=== PATIENT | female | born 2005 | race Caucasian/White ===

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

== ENCOUNTER 2024-01-20 01:33 | Emergency (ER) | payer OTHER, SELFPAY ==
[2024-01-20 01:40] VITALS: BP 122/88; PULSE 100; RESP 16; TEMP 37.1; O2SAT 97; BMI 16.6
[2024-01-20 01:51] LABS: Appearance Urine Cloudy (Clear); Bilirubin Urine Negative (Negative); Blood Urine 3+ (Negative); Color Urine Yellow (Yellow); Glucose Urine Negative (Negative); Ketones Urine Negative (Negative); Leukocyte Esterase Urine 3+ (Negative); Nitrite Urine Negative (Negative); Protein Urine 2+ (Negative); Urobilinogen Urine 0.2 (0.2-1.0)
[2024-01-20 01:58] LABS: Amorphous Sediment Urine Few; Bacteria Urine Few; Squamous Epithelial Cell Urine Few (None-Few); WBC Urine 25-50 (0-5)
--- NOTE | 2024-01-20 02:18 | ED.GENADULT ---
HPI - General Adult General Chief complaint: Flank Pain Stated complaint: left side flank pain Time Seen by Provider: 01/20/24 01:54 Source: patient and family Mode of arrival: ambulatory Limitations: no limitations History of Present Illness HPI narrative: 18-year-old female presents the emergency department for evaluation of dysuria worsening over the last 5 days. No fever, no nausea vomiting or weakness. Has a little bit of left lower flank pain, less than 24 hours of this. Does have some urinary urgency and frequency. No hematuria, diarrhea or abdominal pain. Symptoms started originally on January 03 and she was seen at an outside urgent care. I do not have access to those records. She is eventually able to pull up on her phone for me in see the date of the encounter and that she was treated with Macrobid. She reports her symptoms were quite a bit better while she was on the Macrobid but as soon as she stopped the medication, her symptoms returned within a couple of days and are worsening. Denies risk of STD. She is due for her period and wonders if her symptoms could be related to that. She has not tried taking any Tylenol or ibuprofen. There was no other specific reason why she comes to the ED in the middle of the night. There was no signs of sepsis, loss of consciousness, shortness of breath, falls, bleeding or other red flags. She states that her past medical history is benign, no major long-term health problems. No history of urological or gynecological surgeries. Denies any long-term prescription medications. Denies chance of . No allergies. ROS notable for the urinary symptoms as above only, otherwise denies times 12 systems. Related Data Previous Rx's ?Medication ?Instructions ?Recorded azithromycin 250 mg tablet See Rx Instructions PO .COMPLEX #6 04/26/23 (Zithromax Z-Silas) tabs codeine 10 mg-guaifenesin 100 mg/5 10 ml PO Q6H PRN cough #237 mL 04/26/23 mL oral liquid sertraline 50 mg tablet 50 mg PO QDAY #90 tabs 01/11/24 cephalexin 500 mg capsule 500 mg PO TID #20 caps 01/20/24 Allergies Allergy/AdvReac Type Severity Reaction Status Date / Time No Known Drug Allergies Allergy Verified 06/16/23 16:08 [facility] Medical History Menorrhagia ?N92.0 - Excessive and frequent menstruation with regular cycle (ICD-10) Acne ?L70.9 - Acne, unspecified (ICD-10) Anxiety ?F41.9 - Anxiety disorder, unspecified (ICD-10) Surgical History History of inguinal hernia repair ?Z98.890 - Other specified postprocedural states (ICD-10) ?Z87.19 - Personal history of other diseases of the digestive system (ICD-10) Family History Grandmother Breast cancer High blood pressure Mother High blood pressure High cholesterol Grandfather High cholesterol Social History Narrative: Nonsmoker. No E cigarette use. Denies alcohol use. No illicit drug use. Smoking Status: Never smoker Little interest or pleasure in doing things: not at all Feeling down, depressed, or hopeless: not at all Exam Const: Vital Signs, click to edit/add: Vital Signs - 24 hr 01/20/24 01:40 Temperature 98.7 F Pulse Rate [Left P ulse Oximeter] 100 Respiratory Rate 16 Blood Pressure [Ri ght Upper Arm] 122/88 Pulse Oximetry 97 Oxygen Delivery Me thod Room Air Documenting provider has reviewed patient's vital signs: yes Common normals: no apparent distress General appearance: cooperative and well kempt HENMT: Common normals: oropharynx normal Mouth: oral and palatal mucosa normal Eye: Common normals: conjunctivae normal General eye: normal appearance of both eyes Conjunctiva: conjunctiva(e) normal Neck & C-Spine: General: normal visual inspection Resp: Common normals: normal respiratory effort, no use of accessory muscles and clear to auscultation bilaterally Effort & inspection: able to speak in complete sentences Auscultation: clear to auscultation bilaterally Cardio: Common normals: regular rate, regular rhythm, S1 normal heart sound, S2 normal heart sound and no murmurs Rate: regular rate Rhythm: regular rhythm Heart sounds: S1 normal and S2 normal : Common normals: no CVA tenderness Bladder/kidney exam: no CVA tenderness Back & Pelvis: Common normals: no CVA tenderness Extremity: Common normals: normal to inspection and normal capillary refill Psych: Appearance: well kempt Activity/motor behavior: appropriate eye contact Mood and affect: euthymic mood Judgement: judgment good Skin: Common normals: no rashes or lesions noted General skin exam: no rashes or lesions noted Course Course ED Course: Mild flank pain and dysuria most likely consistent with urinary tract infection. Recent treatment with Macrobid. Antibiotic failure with Macrobid is unfortunately not uncommon. There are no red flags such as hypotension, tachycardia or CVA tenderness on exam. Do not recommend blood work. Differential diagnosis also including urinary stone, multiple other etiologies for abdominal pain, musculoskeletal etiology, gynecological, intestinal, amongst others. Urinalysis collected and reviewed. Clearly indicates urinary tract infection. Since she is not exhibiting any signs of sepsis, do not recommend further workup. Will treat with Keflex 1 g p.o. x1 and then continue on 500 t.i.d. x7 days. Will give single dose of Pyridium and ibuprofen here in the ED. Alarm symptoms reviewed that would warrant ED presentation. Will culture urine. Will contact patient if antibiotic adjustment is needed after a couple of days. She verbalizes understanding and agreement has no additional concerns at this time, see discharge instructions. Vital Signs Vital signs: Initial Vital Signs Temperature 98.7 F 01/20/24 01:40 Temperature Source Temporal Artery Scan 01/20/24 01:40 Pulse Rate 100 01/20/24 01:40 Respiratory Rate 16 01/20/24 01:40 Blood Pressure 122/88 01/20/24 01:40 Blood Pressure Mean 99 01/20/24 01:40 Blood Pressure Position Semi-Fowlers 01/20/24 01:40 Pulse Oximetry 97 01/20/24 01:40 Oxygen Delivery Method Room Air 01/20/24 01:40 Vital Signs Temperature 98.7 F 01/20/24 01:40 Pulse Rate 100 01/20/24 01:40 Respiratory Rate 16 01/20/24 01:40 Blood Pressure 122/88 01/20/24 01:40 Pulse Oximetry 97 01/20/24 01:40 Oxygen Delivery Method Room Air 01/20/24 01:40 Temperature 98.7 F 01/20/24 01:40 Pulse Rate 100 01/20/24 01:40 Respiratory Rate 16 01/20/24 01:40 Blood Pressure 122/88 01/20/24 01:40 Pulse Oximetry 97 01/20/24 01:40 Oxygen Delivery Method Room Air 01/20/24 01:40 Medical Decision Making Lab Data Labs: Lab Results 01/20/24 Range/Units 01:45 Urine Color Yellow (Yellow) Urine Appearance Cloudy A (Clear) Urine pH 8.0 (5.0-8.5) Ur Specific [place] 1.020 (1.000-1.030) Urine Protein 2+ A (Negative) Urine Glucose (UA) Negative (Negative) Urine Ketones Negative (Negative) Urine Blood 3+ A (Negative) Urine Nitrite Negative (Negative) Urine Bilirubin Negative (Negative) Urine Urobilinogen 0.2 (0.2-1.0) Ur Leukocyte Esterase 3+ A (Negative) Urine RBC 2-5 A (0-2) Urine WBC 25-50 A (0-5) Ur Squamous Epith Cells Few (None-Few) Amorphous Sediment Few A (None) Urine Bacteria Few A (None) Discharge Plan Discharge Clinical Impression: UTI (urinary tract infection), uncomplicated Patient Disposition: Home w/ Parent or Adult Condition: Stable Instructions: Urinary Tract Infection in Women (DC) Additional Instructions: There are no signs of severe infection today. I do not recommend blood work. Here urine test is positive for infection as I suspected it would be. I have started you on a stronger antibiotic than the 1 previously prescribed. This has a better chance of actually killing bacteria rather than just slowing the growth. Take the medication 3 times daily for 1 week. You may only get 2 additional doses in today just because of timing. Try to get your next dose by noon. You may continue taking Tylenol 1000 mg every 6 hours and/or ibuprofen 600 mg every 6 hours for discomfort. You should come to emergency department if you have fevers over 100.4, severe nausea and vomiting, severe weakness and or other symptoms of worsening. They antibiotic may cause some loose stools. The pyridium that you were given will help with the bladder discomfort. You may continue using this [id number] as needed, it is sold under the brand Uristat or just simply labeled as urinary pain relief. This will turn your urine some sort of neon orange color. Please to not be alarmed. We will culture your urine that way we will know exactly which bacteria it is growing and can ensure that this is an appropriate antibiotic. We should have the results back in 3 days. We will call only if the antibiotic needs to be changed. You may return to work and school as normal. Activity Level: No Restrictions Discharge Diet: Regular Prescriptions: New cephalexin 500 mg capsule 500 mg PO TID Qty: 20 0RF No Action azithromycin [Zithromax Z-Silas] 250 mg tablet See Rx Instructions PO .COMPLEX Qty: 6 0RF Rx Instructions: For 250 mg dose pack: take 500 mg today (day 1), then 250 mg for 4 days (days 2-5) PO codeine-guaifenesin 10-100 mg/5 mL liquid 10 ml PO Q6H PRN (Reason: cough) Qty: 237 0RF sertraline 50 mg tablet 50 mg PO QDAY Qty: 90 0RF Follow Up/Referrals: Ayo Alvarez MD [Primary Care Provider] - Stand Alone Forms: [employer] Info Instructions
--- OUTSIDE RECORDS SUMMARY | 2024-01-20 02:19 | XMS_ITS | Clinical Summary ---
Author Organization [facility] Address [address] [place] [id number] Care Team Providers Care Signs Sales Representative Name Role Phone No Ref-Primary, Physician Primary [...] Comments Blood Pressure 105/71 07/11/2023 11:31 AM DIRECTOR OF EARLY CHILDHOOD Pulse 101 07/11/2023 11:31 AM DIRECTOR OF EARLY CHILDHOOD Temperature 36.7 ??C (98 ??F) 07/11/2023 11:31 AM DIRECTOR OF EARLY CHILDHOOD Respiratory Rate 14 07/11/2023 11:31 AM DIRECTOR OF EARLY CHILDHOOD Oxygen Saturation 97% 07/11/2023 11:31 AM DIRECTOR OF EARLY CHILDHOOD Inhaled Oxygen Concentration - - Weight 68 kg (150 lb) 04/17/2023 3:27 PM CDT Height - - Body Mass Index - - Plan of Treatment Health Maintenance Due Date Last Done Comments ADVANCE CARE PLANNING 2004 ANNUAL REVIEW OF HM ORDERS 2004 CHLAMYDIA SCREENING 2004 YEARLY PREVENTIVE VISIT 2004 HIV SCREENING 01/26/2019 HEPATITIS C SCREENING 01/26/2022 COVID-19 Vaccine ( season) 2023 01/28/2021, 01/07/2021 PHQ-2 (once per calendar year) 2023 INFLUENZA VACCINE (#1) 2024 0, 03/28/2019, 03/30/2011, Additional history exists DTAP/TDAP/TD IMMUNIZATION (7 - Td or Tdap) [...] IMMUNIZATION Completed 09/08/2018, 02/02/2017 MENINGITIS IMMUNIZATION Completed 04/27/20 22, 02/02/2017, 02/02/2017 RSV MONOCLONAL ANTIBODY Aged Out No l onger eligible based on patient's age to complete this topic Care Teams Signs Sales Representative Relationship Specialty Start Date End Date No Ref-Primary, Physician PCP - General 04/17/23
--- OUTSIDE RECORDS SUMMARY | 2024-01-20 02:19 | XMS_ITS | Referral Summary ---
Author Organization [facility] Address [address] [place] [id number] Care Team Providers Care Army Manager Name Role Phone No Ref-Primary, Physician Primary [...] Comments Blood Pressure 105/71 07/11/2023 11:31 AM FRAMEWORK DEVELOPER Pulse 101 07/11/2023 11:31 AM FRAMEWORK DEVELOPER Temperature 36.7 ??C (98 ??F) 07/11/2023 11:31 AM FRAMEWORK DEVELOPER Respiratory Rate 14 07/11/2023 11:31 AM FRAMEWORK DEVELOPER Oxygen Saturation 97% 07/11/2023 11:31 AM FRAMEWORK DEVELOPER Inhaled Oxygen Concentration - - Weight 68 kg (150 lb) 04/17/2023 3:27 PM CDT Height - - Body Mass Index - - Plan of Treatment Not on file Care Teams Army Manager Relationship Specialty Start Date End Date No Ref-Primary, Physician PCP - General 04/17/23
[2024-01-20] MEDS: PHENAZOPYRIDINE HCL 200 MG TABLET PO (02:21)
[2024-01-20] MEDS: IBUPROFEN 200 MG TABLET 600 MG PO (02:21)
[2024-01-20] MEDS: cephALEXin 500 MG CAPSULE 1000 MG PO (02:21)
== END 2024-01-20 02:32 | disposition home or self-care (01) ==
PROVIDERS: Emergency Provider Family Medicine; PCP Family Medicine
DX: N39.0 Urinary tract infection, site not specified (principal)
CPT/HCPCS: 81001; 87086; 87186; 99283; A9270

== ENCOUNTER 2024-04-20 11:54 | Outpatient (CLI) | payer OTHER, SELFPAY ==
--- OUTSIDE RECORDS SUMMARY | 2024-04-20 11:59 | XMS_ITS | Clinical Summary ---
Author Organization [facility] Address [address] [place] [id number] Care Team Providers Care Buyer Name Role Phone No Ref-Primary, Physician Primary Care Provider Allergies No known active allergies Medications sertraline (ZOLOFT) 50 MG tablet 03/31/2023 Active Social History Tobacco Use Types Packs/Day Years Used Date Smoking Tobacco: Never Adolescent Education Answer Date Record ed Getting School Help Needed Not on file 04/17 Comments Unknown Sex and Gender Information Value Date Recorded Sex Assigned at Not on file Legal Sex Female 4:34 AM SENIOR STRATEGY ANALYST Gender Identity Not on file Sexual Orientation Not on file Last Filed Vital Signs Vital Sign Reading Time Taken Comments Blood Pressure 105/71 07/11/2023 11:31 AM SENIOR STRATEGY ANALYST Pulse 101 07/11/2023 11:31 AM SENIOR STRATEGY ANALYST Temperature 36.7 ??C (98 ??F) 07/11/2023 11:31 AM SENIOR STRATEGY ANALYST Respiratory Rate 14 07/11/2023 11:31 AM SENIOR STRATEGY ANALYST Oxygen Saturation 97% 07/11/2023 11:31 AM SENIOR STRATEGY ANALYST Inhaled Oxygen Concentration - - Weight 68 kg (150 lb) 04/17/2023 3:27 PM CDT Height - - Body Mass Index - - Plan of Treatment Health Maintenance Due Date Last Done Comments ADVANCE CARE PLANNING 2004 ANNUAL REVIEW OF HM ORDERS 2004 CHLAMYDIA SCREENING 2004 YEARLY PREVENTIVE VISIT 2004 HIV SCREENING 01/26/2019 HEPATITIS C SCREENING 01/26/2022 PHQ-2 (once per calendar year) 2023 COVID-19 Vaccine ( season) 2024 01/28/2021, 01/07/2021 INFLUENZA VACCINE (#1) 2024 , 03/28/2019, 03/30/2011, Additional history exists DTAP/TDAP/TD IMMUNIZATION (7 - Td or Tdap) 02/02/2027 02/02/2017, 02/19/2009, 05/05/2005, Additional history exists RSV VACCINE (1 - 1-dose 75+ series) 01/26/2079 HEPATITIS B IMMUNIZATION Completed 005, 2004, 2004, Additional history exists Pneumococcal Vaccine: Pediatrics (0 to 5 Years) and At-Risk Patients (6 to 64 Years) Aged Out 05/05/2005, 2004, 2004, Additional history exists No longer eligible based on patient's age to complete this topic HPV IMMUNIZATION Completed 09/08/2018, 02/02/2017 MENINGITIS IMMUNIZATION Completed 04/27/20, 02/02/2017, 02/02/2017 RSV MONOCLONAL ANTIBODY Aged Out No l onger eligible based on patient's age to complete this topic Insurance [facility] [employer]Team [facility] Care Teams Buyer Relationship Specialty Start Date End Date No Ref-Primary, Physician PCP - General 04/17/23
--- OUTSIDE RECORDS SUMMARY | 2024-04-20 11:59 | XMS_ITS | Referral Summary ---
Author Organization [facility] Address [address] [place] [id number] Care Team Providers Care Tail Puller Name Role Phone No Ref-Primary, Physician Primary [...] on file Legal Sex Female 4:34 AM DATA INTEGRITY SPECIALIST Gender Identity Not on file Sexual Orientation Not on file Last Filed Vital Signs Vital Sign Reading Time Taken Comments Blood Pressure 105/71 07/11/2023 11:31 AM DATA INTEGRITY SPECIALIST Pulse 101 07/11/2023 11:31 AM DATA INTEGRITY SPECIALIST Temperature 36.7 ??C (98 ??F) 07/11/2023 11:31 AM DATA INTEGRITY SPECIALIST Respiratory Rate 14 07/11/2023 11:31 AM DATA INTEGRITY SPECIALIST Oxygen Saturation 97% 07/11/2023 11:31 AM DATA INTEGRITY SPECIALIST Inhaled Oxygen Concentration - - Weight 68 kg (150 lb) 04/17/2023 3:27 PM CDT Height - - Body Mass Index - - Plan of Treatment Not on file Insurance [employer] Care Teams Tail Puller Relationship Specialty Start Date End Date No Ref-Primary, Physician PCP - General 04/17/23
== END 2024-04-20 11:55 | disposition home or self-care (01) ==
LOC: NFLDREF 11:57
PROVIDERS: PCP Family Medicine; Visit Provider Registered Nurse
DX: M54.6 Pain in thoracic spine (principal); Z13.228 Encounter for screening for other metabolic disorders
CPT/HCPCS: 80053

== ENCOUNTER 2025-02-05 13:51 | Outpatient (CLI) | payer OTHER, SELFPAY | END 2025-02-05 13:52 | disposition home or self-care (01) | LOC: NFLDREF 02-08 02:35 | PROVIDERS: PCP Family Medicine; Referring Provider Family Medicine; Visit Provider Family Medicine | DX: Z11.1 Encounter for screening for respiratory tuberculosis (principal) | CPT/HCPCS: 86480 ==

== ENCOUNTER 2025-04-18 14:03 | Outpatient (CLI) | payer OTHER, SELFPAY ==
[2025-04-18 22:03] LABS: Chlamydia DNA Amplified* NOT DETECTED (No Detected); GC DNA Amplified* NOT DETECTED (No Detected)
[2025-04-22 15:15] LABS: Pap Test Digital Imaging Done
== END 2025-04-18 14:04 | disposition home or self-care (01) ==
PROVIDERS: PCP Family Medicine; Visit Provider Physician Assistant
DX: Z11.3 Encounter for screening for infections with a predominantly sexual mode of transmission (principal); N94.19 Other specified dyspareunia; Z12.4 Encounter for screening for malignant neoplasm of cervix
CPT/HCPCS: 87491; 87591; 87624; 87625; 88141; 88142; 88175

== ENCOUNTER 2025-04-25 14:32 | Outpatient (CLI) | payer OTHER, SELFPAY ==
--- NOTE | 2025-04-25 15:00 | CRLHL7_ITS ---
For Patients: As a result of the Century Cures Act, medical imaging exams and procedure reports are released immediately into your electronic medical record. You may view this report before your referring provider. If you have questions, please contact your health care provider. INDICATION: Other specified dyspareunia COMPARISON: 09/01/2022 TECHNIQUE: 2D weathers-scale and color Doppler images were acquired of the pelvis using a transabdominal and transvaginal approach. Transvaginal imaging performed to better visualize the endometrial stripe and ovaries. FINDINGS: Sonographic images demonstrate a normal size and smooth outer contour of the uterus. Uterus measures 7.8 cm in length by 3.6 cm in AP diameter by 5.0 cm in transverse dimension. The myometrium has a normal uniform echotexture. The endometrial lining appears normal and measures 1.1 cm in composite thickness. The right ovary measures 3.6 x 3.3 x 3.6 cm in size and the left ovary measures 4.6 x 3.1 x 3.3 cm. The ovaries demonstrate normal arterial and venous blood flow on color Doppler analysis. Trace physiologic free fluid. Hypoechoic right ovarian cyst is present which measures 2.6 x 1.5 x 1.9 cm. Associated echogenic focus is noted. Additional hypoechoic cyst left ovary measures 1.7 x 1.8 x 2.1 cm. IMPRESSION: 2.1 cm left ovarian probable endometrioma. 2.6 cm endometrioma versus dermoid right ovary. Dictated by Keny Cueto MD @ 04/25/2025 4:02:12 PM (Electronically Signed)
== END 2025-04-25 14:33 | disposition home or self-care (01) ==
LOC: US 14:32
PROVIDERS: PCP Family Medicine; Visit Provider Physician Assistant
DX: N94.19 Other specified dyspareunia (principal); N80.123 Deep endometriosis of bilateral ovaries
CPT/HCPCS: 76830; 76856